=== PATIENT | male | born 1990 ===

== ENCOUNTER 2024-01-10 16:29 | Emergency (ER) | payer SELFPAY ==
[~2024-01-10] VITALS: Ht 157.5 cm; Wt 69.4 kg
[2024-01-10] VITALS (13 sets, daily range): BP systolic 97–119; BP diastolic 65–77
[2024-01-10] MEDS ORDERED: POVIDONE IODINE 0.5 OZ/BTL TOP ONE (17:05)
[2024-01-10] MEDS ORDERED: Diph, Acellular Pertussis, Tet 0.5 ML/VIAL (Tdap) SDV IM ONE (17:05)
[2024-01-10] MEDS ORDERED: LIDOCAINE W/ EPINEPHRINE 10 MG/ML INJ STI ONE (17:05)
[2024-01-10] MEDS ORDERED: NEOMYCIN-BACITRACIN-POLYMYXIN 0.5 GM/PAK PAK TOP ONE (17:05)
[2024-01-10] MEDS ORDERED: NAPROXEN500 MG PO (18:27)
[2024-01-10] MEDS ORDERED: LIDOcaine HCl 1% (Local Anesth.) 20 ML VIAL IM STA (18:28)
[2024-01-10] MEDS ORDERED: KEFLEX500 MG PO (18:28)
[2024-01-10] MEDS ORDERED: cefTRIAXone SODIUM 1 GM/VIAL SDV IM ONE (18:30)
== END 2024-01-10 20:30 | disposition home or self-care (01) | DRG 999 ==
LOC: ED 16:29
PROC: 0HQ1XZZ Repair Face Skin, External Approach (ICD-10-PCS; principal; 2024-01-10)
DX: S01.81XA Laceration without foreign body of other part of head, initial encounter (principal); S06.0XAA Concussion with loss of consciousness status unknown, initial encounter; W11.XXXA Fall on and from ladder, initial encounter